=== PATIENT | male | born 1990 | race Caucasian/White ===

== ENCOUNTER 2016-10-21 10:59 | Emergency (ER) | payer BC ==
[~2016-10-21] VITALS: Wt 71.5 kg
[~2016-10-21 10:59] MED LIST: ALBU8.5H5 INH; PRED20TA PO
--- NOTE | 2016-10-21 16:13 | ERD ---
ER Documentation Chief Complaint Date/Time DATE: 10/21/16 TIME: 16:11 Chief Complaint MILD ABD PAIN FOR THE PAST FEW WKS. INTERMITTENT BLOODY STOOLS, NO VOMITING HPI This a 26-year-old male who presents to the emergency department today complaining of one bout of blood in his stool 2 weeks ago. Patient states this has not happened since then but wants to "get it checked out". Denies abdominal pain, fevers or chills, nausea or vomiting. ROS All systems reviewed and are negative except as per history of present illness. Medications Home Meds Active Scripts Albuterol Sulfate* (Albuterol Sulfate* HFA) 8.5 Gm Hfa.aer.ad, 1-2 PUFF INH Q4 Y for SHORTNESS OF BREATH, #1 EA Prov:EM HERNANDES PA-C 08/04/15 Prednisone* (Prednisone*) 20 Mg Tab, 40 MG PO DAILY for 4 Days, TAB Prov:EM HERNANDES PA-C 08/04/15 Allergies Allergies: Coded Allergies: No Known Allergy (Unverified , 01/20/13) PMhx/Soc History of Surgery: No Anesthesia Reaction: No Hx Neurological Disorder: No Hx Respiratory Disorders: Yes (asthma) Hx Cardiac Disorders: No Hx Psychiatric Problems: No Hx Miscellaneous Medical Probl: No Hx Alcohol Use: Yes (occasionally) Hx Substance Use: No Hx Tobacco Use: No Smoking Status: Never smoker Physical Exam Vitals Vital Signs Date Time Temp Pulse Resp B/P Pulse Ox O2 Delivery O2 Flow Rate FiO2 10/21/16 11:10 98.5 80 21 129/73 98 Physical Exam Const: No acute distress Head: Atraumatic Eyes: Normal Conjunctiva ENT: Normal External Ears, Nose and Mouth. Neck: Full range of motion..~ No meningismus. Resp: Clear to auscultation bilaterally Cardio: Regular rate and rhythm, no murmurs Abd: Soft, non tender, non distended. Normal bowel sounds : Rectal exams shows no evidence of internal or external hemorrhoids. There is stool in the rectal vault. No evidence of gross bleeding. Skin: No petechiae or rashes Neur: Awake and alert Psych: Normal Mood and Affect Results 24 hrs Laboratory Tests Test 10/21/16 15:45 Stool Occult Blood NEGATIVE Procedures/MDM This is a 26-year-old male who presents to the emergency department today complaining of one bout of blood in his stool. Patient has no abdominal pain on physical exam. He states his only happened one time 2 weeks ago.. He has no other complaints at this time he has no abdominal pain on physical exam. I do not feel the patient requires a laboratory workup or imaging at this time. I did do a stool guaiac on the patient that was negative. Low suspicion for any acute surgical abdomen. There is no evidence of internal/external hemorrhoids. I sling to the patient he should follow-up with his primary care physician and may benefit form colonoscopy if he has any further concerns. Patient did have a bowel movement yesterday have low suspicion for constipation at this time however there was stool in the rectal vault. Patient was instructed to eat more fiber. At this time the patient is stable for discharge and outpatient management. Patient should follow up with their PCP in the next 1-2 days. They may return to the emergency department sooner for any persistent or worsening of symptoms. Patient understood and agreed with the plan. Departure Diagnosis: Primary Impression: Blood in stool Condition: Fair Patient Instructions: Eating a High Fiber Diet Referrals: your PCP Additional Instructions: Call your primary care doctor TOMORROW for an appointment during the next 1-2 days.See the doctor sooner or return here if your condition worsens before your appointment time. Eat plenty of fiber and drink plenty of water LIBRADO STAPLES PA-C Oct 21, 2016 16:13
== END 2016-10-21 21:09 | disposition home or self-care (01) ==
LOC: FTE 10:59
DX: K92.1 Melena (principal); J45.909 Unspecified asthma, uncomplicated
CPT/HCPCS: 82270; 99283